=== PATIENT | female | born 1935 ===

== ENCOUNTER 2017-12-17 11:17 | Outpatient (CLI) | payer OTHER ==
[~2017-12-17] VITALS: Ht 154.9 cm; Wt 81.6 kg
== END 2017-12-17 15:53 | disposition home or self-care (01) ==
LOC: OFIC 805 11:17
DX: H90.3 Sensorineural hearing loss, bilateral (principal); R05 Cough; J31.0 Chronic rhinitis

== ENCOUNTER 2019-01-27 09:50 | Outpatient (CLI) | payer OTHER | END 2019-01-27 11:00 | disposition home or self-care (01) | LOC: NUCLEAR 09:50 | DX: C79.81 Secondary malignant neoplasm of breast (principal) | CPT/HCPCS: 78815; A9552 ==